=== PATIENT | male | born 1990 | race American Indian/Alaskan Native ===

== ENCOUNTER 2017-07-15 11:21 | Emergency (ER) | payer SELFPAY ==
[2017-07-15] MEDS ORDERED: ZOFRAN IV ONE (11:59)
[2017-07-15] MEDS ORDERED: TORADOL IV ONE (11:59)
[2017-07-15 12:24] LABS: Basophils % (Auto) 0.3 % (0.0-1.8); Eosinophils % (Auto) 0.2 % (0.0-4.3); Hemoglobin 15.7 gm/dl (11.8-15.2); Lymphocytes # (Auto) 1.4 K/mm3 (1.2-5.4); Lymphocytes % (Auto) 14.6 % (13.4-35.0); Mean Corpuscular HGB Conc 33 % (32-34); Mean Corpuscular Hemoglobin 30 pg (28-32); Mean Corpuscular Volume 91 fl (84-94); Monocytes # (Auto) 0.5 K/mm3 (0.0-0.8); Monocytes % (Auto) 5.3 % (0.0-7.3); Platelet Count 261 K/mm3 (140-440); Red Blood Count 5.27 M/mm3 (3.65-5.03); Red Cell Distribution Width 13.9 % (13.2-15.2)
--- NOTE | 2017-07-15 12:27 | Emergency Department Report ---
ED Abdominal Pain HPI - General Chief Complaint: Medical Clearance Stated Complaint: STOMACH CRAMPS Time Seen by Provider: 07/15/17 11:59 Source: patient, EMS Mode of arrival: Stretcher Limitations: Other - History of Present Illness Initial Comments: 26-year-old male with no known past medical history presents to the hospital after bizarre behavior at work. As per EMS coworkers state the patient began acting bizarre then began trying to gag himself. He also pointed and he was shaking on the floor. Upon arrival patient continued to intermittently gag himself and occasionally answer questions to triage staff. Upon evaluation the first thing he says is that he has a stomach virus. He complains of aching mid abdominal pain with associated nausea. No episodes of vomiting or diarrhea reported. Patient unsure if he had a seizure stating he does not remember. Denies drug use. Since arrival patient has removed his IV several times. He also complains of a global headache. He is Alert and oriented times Mother arrived and initially upset stating she wanted the pt transferred to [place] but there was agreeable to him being evaluated here the patient wanted to stay. She states that 1-2 months ago patient had episode of something similar having severe belly pain leading to a possible seizure. They thought that the seizure was induced by the stomach pain. His diagnosis was GERD and he was placed on Pepcid. Patient has not been taking his medication as prescribed Patient's boss called to speak to me as well. He reports that they were working in a hot trailer and humid conditions. Patient was very diaphoretic started speaking but not making sense and then had episode of staring prior to seizure-like activity. Patient is unresponsive to during and after seizure and a little bit of blood was supported coming from his mouth. - Related Data Previous Rx's Medication Instructions Recorded Last Taken Type Famotidine [Pepcid] 20 mg PO BID #30 tablet 07/15/17 Unknown Rx levETIRAcetam [Keppra TAB] 500 mg PO BID #60 tablet 07/15/17 Unknown Rx Allergies Allergy/AdvReac Type Severity Reaction Status Date / Time No Known Allergies Allergy Unverified 07/15/17 11:49 ED Review of Systems ROS: Stated complaint: STOMACH CRAMPS Other details as noted in HPI Comment: All other systems reviewed and negative ED Past Medical Hx - Past Medical History Previous Medical History?: No - Surgical History Past Surgical History?: No - Social History Smoking Status: Never Smoker Substance Use Type: None - Medications Home Medications: Home Medications Medication Instructions Recorded Confirmed Last Taken Type Famotidine [Pepcid] 20 mg PO BID #30 tablet 07/15/17 Unknown Rx levETIRAcetam [Keppra TAB] 500 mg PO BID #60 tablet 07/15/17 Unknown Rx ED Physical Exam - General Limitations: Other - Other Other exam information: General: No limitations, patient is alert in no acute distress Head exam: Atraumatic, normocephalic Eyes exam: Normal appearance, pupils equal reactive to light, extraocular movements intact ENT: Moist mucous membrane, superficial abrasions to right lateral anterior portion of the tongue Neck exam: Normal inspection, full range of motion, no meningismus nontender Respiratory exam: Clear to auscultation bilateral, no wheezes, rales, crackles Cardiovascular: Normal rate and rhythm, normal heart sounds Abdomen: Soft, nondistended, mid abdominal tenderness to palpation, with normal bowel sounds, no rebound, or guarding Extremity: Full range of motion normal inspection no deformity Back: Normal Inspection, full range of motion, no tenderness Neurologic: Alert, oriented x3, cranial nerves intact, no motor or sensory deficit Psychiatric: normal affect, normal mood Skin: Warm, dry, intact ED Course Vital Signs 07/15/17 15:32 O2 Sat by Pulse 100 Oximetry - Reevaluation(s) Reevaluation #1: 07/15/17 13:30 Patient brought back from CT with mother extremely anxious and upset. Mother reports that patient became diaphoretic and unresponsive while in CT area. He had an episode of staring and lipsmacking lasting for several minutes. Therefore CT scan was not performed and patient was transferred back to the room. Patient is alert and responsive in the ED with continued complaint of headache and abdominal pain but in no acute distress. Nurse Instructed to give his seizure medication in the other medication as ordered. Scan will be reattempted after completion of seizure medication ED Medical Decision Making - Lab Data Result diagrams: 07/15/17 12:03 07/15/17 12:19 Lab Results 07/15/17 07/15/17 07/15/17 Range/Units 12:03 12:03 12:03 WBC (4.5-11.0) K/mm3 RBC (3.65-5.03) M/mm3 Hgb (11.8-15.2) gm/dl Hct (35.5-45.6) % MCV (84-94) fl MCH (28-32) pg MCHC (32-34) % RDW (13.2-15.2) % Plt Count (140-440) K/mm3 Lymph % (Auto) (13.4-35.0) % [place] % (Auto) (0.0-7.3) % Eos % (Auto) (0.0-4.3) % Baso % (Auto) (0.0-1.8) % Lymph # (1.2-5.4) K/mm3 [place] # (0.0-0.8) K/mm3 Eos # (0.0-0.4) K/mm3 Baso # (0.0-0.1) K/mm3 Seg Neutrophils % (40.0-70.0) % Seg Neutrophils # (1.8-7.7) K/mm3 Sodium (137-145) mmol/L Potassium (3.6-5.0) mmol/L Chloride (98-107) mmol/L Carbon Dioxide (22-30) mmol/L Anion Gap mmol/L BUN (9-20) mg/dL Creatinine (0.8-1.5) mg/dL Estimated GFR ml/min BUN/Creatinine Ratio % Glucose (75-100) mg/dL POC Glucose (70-105) Calcium (8.4-10.2) mg/dL Magnesium (1.7-2.3) mg/dL Total Bilirubin (0.1-1.2) mg/dL AST (5-40) units/L ALT (7-56) units/L Alkaline Phosphatase (35-129) units/L Total Protein (6.3-8.2) g/dL Albumin (3.9-5) g/dL Albumin/Globulin Ratio % Lipase (13-60) units/L Urine Color (Yellow) Urine Turbidity (Clear) Urine pH (5.0-7.0) Ur Specific [place] (1.003-1.030) Urine Protein (Negative) mg/dL Urine Glucose (UA) (Negative) mg/dL Urine Ketones (Negative) mg/dL Urine Blood (Negative) Urine Nitrite (Negative) Ur Reducing Substances Urine Bilirubin (Negative) Urine Ictotest Urine Urobilinogen (<2.0) mg/dL Ur Leukocyte Esterase (Negative) Urine WBC (Auto) (0.0-6.0) /HPF Urine RBC (Auto) (0.0-6.0) /HPF U Epithel Cells (Auto) (0-13.0) /HPF Amorphous Crystals Urine Mucus /HPF Salicylates 0.4 L (2.8-20.0) mg/dL Urine Opiates Screen Urine Methadone Screen Acetaminophen < 5.0 L (10.0-30.0) ug/mL Ur Barbiturates Screen Ur Phencyclidine Scrn Ur Amphetamines Screen U Benzodiazepines Scrn Urine Cocaine Screen U Marijuana (THC) Screen Plasma/Serum Alcohol < 0.01 (0-0.07) % 07/15/17 07/15/17 07/15/17 Range/Units 12:03 12:19 13:27 WBC 9.4 (4.5-11.0) K/mm3 RBC 5.27 H (3.65-5.03) M/mm3 Hgb 15.7 H (11.8-15.2) gm/dl Hct 48.0 H (35.5-45.6) % MCV 91 (84-94) fl MCH 30 (28-32) pg MCHC 33 (32-34) % RDW 13.9 (13.2-15.2) % Plt Count 261 (140-440) K/mm3 Lymph % (Auto) 14.6 (13.4-35.0) % [place] % (Auto) 5.3 (0.0-7.3) % Eos % (Auto) 0.2 (0.0-4.3) % Baso % (Auto) 0.3 (0.0-1.8) % Lymph # 1.4 (1.2-5.4) K/mm3 [place] # 0.5 (0.0-0.8) K/mm3 Eos # 0.0 (0.0-0.4) K/mm3 Baso # 0.0 (0.0-0.1) K/mm3 Seg Neutrophils % 79.6 H (40.0-70.0) % Seg Neutrophils # 7.4 (1.8-7.7) K/mm3 Sodium 141 (137-145) mmol/L Potassium 3.6 (3.6-5.0) mmol/L Chloride 102.2 (98-107) mmol/L Carbon Dioxide 22 (22-30) mmol/L Anion Gap 20 mmol/L BUN 9 (9-20) mg/dL Creatinine 1.0 (0.8-1.5) mg/dL Estimated GFR > 60 ml/min BUN/Creatinine Ratio 9 % Glucose 107 H (75-100) mg/dL POC Glucose 80 (70-105) Calcium 9.4 (8.4-10.2) mg/dL Magnesium 2.20 (1.7-2.3) mg/dL Total Bilirubin 0.40 (0.1-1.2) mg/dL AST 26 (5-40) units/L ALT 34 (7-56) units/L Alkaline Phosphatase 87 (35-129) units/L Total Protein 7.8 (6.3-8.2) g/dL Albumin 4.5 (3.9-5) g/dL Albumin/Globulin Ratio 1.4 % Lipase 18 (13-60) units/L Urine Color (Yellow) Urine Turbidity (Clear) Urine pH (5.0-7.0) Ur Specific [place] (1.003-1.030) Urine Protein (Negative) mg/dL Urine Glucose (UA) (Negative) mg/dL Urine Ketones (Negative) mg/dL Urine Blood (Negative) Urine Nitrite (Negative) Ur Reducing Substances Urine Bilirubin (Negative) Urine Ictotest Urine Urobilinogen (<2.0) mg/dL Ur Leukocyte Esterase (Negative) Urine WBC (Auto) (0.0-6.0) /HPF Urine RBC (Auto) (0.0-6.0) /HPF U Epithel Cells (Auto) (0-13.0) /HPF Amorphous Crystals Urine Mucus /HPF Salicylates (2.8-20.0) mg/dL Urine Opiates Screen Urine Methadone Screen Acetaminophen (10.0-30.0) ug/mL Ur Barbiturates Screen Ur Phencyclidine Scrn Ur Amphetamines Screen U Benzodiazepines Scrn Urine Cocaine Screen U Marijuana (THC) Screen Plasma/Serum Alcohol (0-0.07) % 07/15/17 07/15/17 Range/Units 15:30 15:30 WBC (4.5-11.0) K/mm3 RBC (3.65-5.03) M/mm3 Hgb (11.8-15.2) gm/dl Hct (35.5-45.6) % MCV (84-94) fl MCH (28-32) pg MCHC (32-34) % RDW (13.2-15.2) % Plt Count (140-440) K/mm3 Lymph % (Auto) (13.4-35.0) % [place] % (Auto) (0.0-7.3) % Eos % (Auto) (0.0-4.3) % Baso % (Auto) (0.0-1.8) % Lymph # (1.2-5.4) K/mm3 [place] # (0.0-0.8) K/mm3 Eos # (0.0-0.4) K/mm3 Baso # (0.0-0.1) K/mm3 Seg Neutrophils % (40.0-70.0) % Seg Neutrophils # (1.8-7.7) K/mm3 Sodium (137-145) mmol/L Potassium (3.6-5.0) mmol/L Chloride (98-107) mmol/L Carbon Dioxide (22-30) mmol/L Anion Gap mmol/L BUN (9-20) mg/dL Creatinine (0.8-1.5) mg/dL Estimated GFR ml/min BUN/Creatinine Ratio % Glucose (75-100) mg/dL POC Glucose (70-105) Calcium (8.4-10.2) mg/dL Magnesium (1.7-2.3) mg/dL Total Bilirubin (0.1-1.2) mg/dL AST (5-40) units/L ALT (7-56) units/L Alkaline Phosphatase (35-129) units/L Total Protein (6.3-8.2) g/dL Albumin (3.9-5) g/dL Albumin/Globulin Ratio % Lipase (13-60) units/L Urine Color Yellow (Yellow) Urine Turbidity Clear (Clear) Urine pH 6.0 (5.0-7.0) Ur Specific [place] 1.016 (1.003-1.030) Urine Protein 30 mg/dl (Negative) mg/dL Urine Glucose (UA) Neg (Negative) mg/dL Urine Ketones Neg (Negative) mg/dL Urine Blood Neg (Negative) Urine Nitrite Neg (Negative) Ur Reducing Substances Not Reportable Urine Bilirubin Neg (Negative) Urine Ictotest Not Reportable Urine Urobilinogen < 2.0 (<2.0) mg/dL Ur Leukocyte Esterase Neg (Negative) Urine WBC (Auto) 10.0 H (0.0-6.0) /HPF Urine RBC (Auto) 2.0 (0.0-6.0) /HPF U Epithel Cells (Auto) 1.0 (0-13.0) /HPF Amorphous Crystals Few Urine Mucus Few /HPF Salicylates (2.8-20.0) mg/dL Urine Opiates Screen Presumptive positive Urine Methadone Screen Presumptive negative Acetaminophen (10.0-30.0) ug/mL Ur Barbiturates Screen Presumptive negative Ur Phencyclidine Scrn Presumptive negative Ur Amphetamines Screen Presumptive negative U Benzodiazepines Scrn Presumptive negative Urine Cocaine Screen Presumptive negative U Marijuana (THC) Screen Presumptive positive Plasma/Serum Alcohol (0-0.07) % - Radiology Data Radiology results: report reviewed CT head Minimal paranasal sinus disease. No acute findings CT abdomen and pelvis IV contrast No acute finding Nonspecific groundglass densities are seen in the lung bases. - Medical Decision Making Patient seemed to have multiple seizures today. 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 After Keppra, no further seizure activity noted. Patient has been trying to make arrangement with outpatient [facility] with earliest appointment end of August. Keppra 500 mg twice a day will be continued. No driving precautions recommended. A copy of CT head and abdomen will be provided. Patient's downloaded [employer] claudia to assist with affordability of medication UA has 10 WBCs and patient denies urinary symptoms. Patient did not wipe his penis prior to providing a sample and since asymptomatic without bacteria cells therefore treatment will not be provided at this time. - Differential Diagnosis gastroenteritis, psychiatric disorder, seizure, pseudoseizures, intracrania Critical Care Time: No Critical care attestation.: If time is entered above; I have spent that time in minutes in the direct care of this critically ill patient, excluding procedure time. ED Disposition Clinical Impression: Seizure, Abdominal pain, GERD (gastroesophageal reflux disease) Disposition: TO HOME OR SELFCARE Is pt being admited?: No Does the pt Need Aspirin: No Condition: Stable Instructions: Recurrent Seizures Adult (ED), Gastroesophageal Reflux Disease ( ED), Abdominal Pain (ED) Additional Instructions: Take the medication as prescribed. You should not drive since you have an underlying seizure disorder until you are cleared by a neurologist. Follow-up with the [place] neurologist as planned or one of theneurologist provided as well as the primary care clinic provided. Return if symptoms worsen as indicated by your discharge instructions. Take a copy of her CAT scan reports to your physicians for follow-up. Prescriptions: Famotidine [Pepcid] 20 mg PO BID #30 tablet levETIRAcetam [Keppra TAB] 500 mg PO BID #60 tablet Referrals: [facility] [Provider Group] - 3-5 Days (Primary care clinic) PHILIP CASAREZ MD [Staff Physician] - 3-5 Days (Neurologist) WASHINGTON LIMON MD [Staff Physician] - 3-5 Days (Neurologist) Time of Disposition: 16:46
[2017-07-15 12:40] LABS: Alanine Aminotransferase 34 units/L (7-56); Albumin 4.5 g/dL (3.9-5); BUN/Creatinine Ratio 9; Blood Urea Nitrogen 9 mg/dL (9-20); Calcium 9.4 mg/dL (8.4-10.2); Hemolysis Index 18; Lipase 18 units/L (13-60)
[2017-07-15] MEDS ORDERED: MORPHINE IV ONE (12:56)
[2017-07-15] MEDS ORDERED: PEPCID IV ONE (12:56)
[2017-07-15] MEDS ORDERED: NACL 0.9% 1000 ML 1,000 ML IV ONE (13:00)
[2017-07-15] MEDS ORDERED: KEPPRA 1,000 MG/NS 0.75% 100ML 1,000 MG/100 ML BAG IV ONE (13:01)
[2017-07-15 15:48] LABS: Amphetamine Screen,Urine PRESUMPTIVE NEGATIVE; Benzodiazepines Screen,Urine PRESUMPTIVE NEGATIVE; Cocaine Screen,Urine PRESUMPTIVE NEGATIVE; Methadone Screen,Urine PRESUMPTIVE NEGATIVE
[2017-07-15 15:50] LABS: Amorphous Crystals,Urine Few; Mucus,Urine FEW /HPF
[2017-07-15 15:51] LABS: Bilirubin,Urine NEG (Negative); Blood,Urine NEG (Negative); Color,Urine Yellow (Yellow); Urobilinogen,Urine < 2.0 mg/dL (<2.0)
[2017-07-15 16:17] LABS: Cannabinoid Screen,Urine PRESUMPTIVE POSITIVE; Opiate Screen,Urine PRESUMPTIVE POSITIVE
[2017-07-15 17:08] VITALS: BP 115/66
--- NOTE | 2017-07-20 14:13 | Cat Scan Report ---
FINAL REPORT PROCEDURE: CT ABDOMEN PELVIS W CON TECHNIQUE: Computerized axial tomography of the abdomen and pelvis was performed after the IV injection of iodinated nonionic contrast. HISTORY: abd pain n,v COMPARISON: No prior studies are available for comparison. FINDINGS: Lower Lung de [place] torre: Nonspecific ground-glass density seen in the lung bases. No discrete masses focal consolidations or effusions are identified. Upper Abdomen: The liver, the gallbladder, spleen, pancreas and adrenal glands are unremarkable. Kidneys, Ureters and Urinary bladder: No abnormality is seen Retroperitoneum: Abdominal aorta appears normal. Nonspecific subcentimeter lymph nodes are seen in the retroperitoneum. No pathologically enlarged lymph nodes are identified. Bowel: No abnormalities are seen. No evidence of bowel obstruction ascites or free intraperitoneal gas. Normal-appearing appendix is seen in the right lower quadrant. Reproductive organs: Prostate gland is unremarkable and does not appear to be enlarged. Other: No acute bone abnormalities are visualized. IMPRESSION: No acute abnormalities are seen. Nonspecific ground-glass densities are seen in the lung bases. No dense consolidations effusions or masses are identified.
--- NOTE | 2017-07-20 14:13 | Cat Scan Report ---
FINAL REPORT PROCEDURE: CT HEAD/BRAIN WO CON TECHNIQUE: Computerized tomography of the head was performed without contrast material. HISTORY: Headache. Seizure-like activity. COMPARISON: No prior studies are available for comparison. FINDINGS: Brain: Brain density appears normal. No evidence of intracranial hemorrhage. No parenchymal hemorrhage, mass lesions or mass effect are seen. No abnormal extraxial fluid collects or masses are seen. Ventricles: Ventricles are normal size and are midline. Bone Windows: No evidence of skull fracture. Paranasal sinuses: There is nodular mucosal thickening anteriorly medially in the right maxillary sinus. Minimal nodular mucosal thickening seen laterally in the right side of the sphenoid sinus. Paranasal sinuses otherwise appear clear. Mastoid air cells: Clear . IMPRESSION: Minimal paranasal sinus disease as described. CT scan of the brain otherwise is unremarkable. If clinically indicated MRI of the brain could be obtained to evaluate further for possible seizure focus.
== END 2017-07-15 17:34 | disposition home or self-care (01) ==
LOC: EDBD → ED 11:21
DX: K21.9 Gastro-esophageal reflux disease without esophagitis (principal); R56.9 Unspecified convulsions
CPT/HCPCS: 36415; 70450; 74177; 80053; 80307; 81001; 82962; 83690; 83735; 85025; 96365; 96375; 99285; G0480; J1953; J2270; J2405; J7030; Q9967; 80320